=== PATIENT | male | born 1975 | race Caucasian/White ===

== ENCOUNTER 2019-04-12 14:18 | Emergency (ER) | payer BC ==
[2019-04-12] MEDS ORDERED: 0.9 % SODIUM CHLORIDE 1,000 ML BAG IV ONE (15:33)
[2019-04-12] MEDS ORDERED: KETOROLAC 30 MG/ML VIAL IVP ONE (15:33)
[2019-04-12 15:48] LABS: ABSOLUTE NEUTROPHIL COUNT 7.49; BASO % 0.3 % (0-6); EOS % 0.6 % (0-6); GRAN % 75.4 % (47-80); HEMATOCRIT 32.1 % (42.0-52.0); HEMOGLOBIN 9.9 gm/dl (14.0-18.0); LYMPH % 13.1 % (16-45); MEAN CELL VOLUME 93.9 fl (81-97); MEAN CORPUSCULAR HEMOGLOBIN 28.9 pg (27-33); MEAN CORPUSCULAR HGB CONC 30.8 g/dl (32-36); MONO % 10.6 % (0-9); PLATELET COUNT 292 K/uL (130-400); RED BLOOD COUNT 3.42 M/uL (4.40-5.70); RED CELL DISTRIBUTION WIDTH 13.9 % (11.5-14.5); URINE APPEARANCE CLEAR; URINE BILIRUBIN NEGATIVE (NEGATIVE); URINE BLOOD NEGATIVE (NEGATIVE); URINE COLOR YELLOW; URINE GLUCOSE (UA) NEGATIVE (NEGATIVE); URINE KETONE NEGATIVE (NEGATIVE); URINE LEUKOCYTE ESTERASE NEGATIVE (NEGATIVE); URINE NITRITE NEGATIVE (NEGATIVE); URINE PROTEIN NEGATIVE (NEGATIVE); URINE UROBILINOGEN 0.2 E.U./dL (0.20 - 1.00); WHITE BLOOD COUNT W/O DIFF 9.9 K/uL (4.2-12.2)
[2019-04-12 16:02] LABS: BLOOD UREA NITROGEN 22 mg/dL (6-20); CREATININE 1.7 mg/dL (0.7-1.2); EST GLOMERULAR FILTRATION RATE 47 mL/min; TOTAL PROTEIN 7.2 g/dL (6.6-8.7)
[2019-04-12 16:04] LABS: GLUCOSE,RANDOM 112 mg/dL (74-109)
[2019-04-12 16:07] LABS: ALBUMIN 3.4 g/dL (4.0-5.0); ALKALINE PHOSPHATASE 143 U/L (40-129); ALT/SGPT 21 U/L (<41); AST/SGOT 16 U/L (10.0-50.0)
[2019-04-12 16:08] LABS: BILIRUBIN,DIRECT < 0.2 mg/dL (0-0.3)
--- NOTE | 2019-04-12 17:38 | CT SCAN REPORT ---
EXAMINATION: CT Abdomen and Pelvis without IV Contrast EXAM DATE: 04/12/2019 4:55 PM TECHNIQUE: Standard protocol CT imaging of the abdomen and pelvis was performed without intravenous c ontrast. INDICATION: ruq pain COMPARISON: None ENCOUNTER: Not applicable CT ABDOMEN AND PELVIS FINDINGS: Lung Bases: Bibasilar atelectasis Hepatobiliary: The liver has a normal size with a smooth surface. Patient is status post cholecystec danielle Pancreas: Severe fatty atrophy with no definite visualization of pancreatic tissue. Spleen: The spleen is not enlarged. Adrenals: The adrenal glands are normal. Kidneys, Ureters, & Bladder: No hydronephrosis bilaterally. Vascular calcifications are present. Both ureters have a normal course and caliber and the urinary bladder a normal morphology and uniform wal l thickness. No ureteral or bladder calculi are identified. Gastrointestinal: The stomach and small bowel are normal with no obstruction or inflammation. Appendi x is identified and measures up to 7 mm in diameter which is at the upper limits of normal. No append icolith is identified. However, there is prominent inflammatory change surrounding the right colon an d extending superiorly just proximal to the splenic flexure. Areas of right colonic wall thickening a re present. Underlying colitis is suspected. Adjacent prominent mesenteric lymph nodes are present so me of which contain punctate calcifications. These measure up to 1.6 cm. Reproductive Organs: Unremarkable Lymphatic System: As mentioned above prominent mesenteric lymph nodes right abdomen adjacent to the c olon. No retroperitoneal adenopathy. Vasculature: Normal caliber abdominal aorta Peritoneum: No free fluid, free air, or inflammation Abdominal wall & Musculoskeletal: No suspicious bone lesions. Small fat-containing periumbilical jessica ia Assessment of the solid organs, soft tissues, and vascular structures is markedly limited on noncontr ast imaging, IMPRESSION: There is extensive inflammatory change surrounding the right colon and extending just proximal to the splenic flexure. Areas of right colonic wall thickening are present and there are adjacent mesenteri c lymph nodes. Underlying colitis is suspected. Note is made that the appendix measures up to 7 mm in diameter which is at the upper limits of normal. At this time no definite appendicolith. Severe atrophy of the pancreas Renal vascular calcifications. Additional findings as detailed above Dictated by: Symone Foreman MD on 04/12/2019 5:23 PM. .
--- NOTE | 2019-04-12 18:00 | Emergency Department Record ---
History of Present Illness - General Chief Complaint: Abdominal Pain Stated Complaint: RT SIDE PAIN Time Seen by Provider: 04/12/19 15:09 Source: Patient Mode of Arrival: Ambulatory - History of Present Illness Initial Comments: pt c/o ruq pain that radiates around to his back that increases with inspiration since last pm and getting progressively worse. pt is iddm. no n/v/c/d. walking or movement make it worse MD Complaint: Abdominal pain Onset/Timin -: Days(s) Location: RUQ Radiation: None Migration to: No migration Severity scale (1-10): 6 Quality: Aching Consistency: Constant Improves With: Nothing Worsens With: Nothing Associated Symptoms: Nausea - Related Data Home Medications Medication Instructions Recorded Confirmed Last Taken Aspirin [Adult Low Dose Aspirin EC] 81 mg PO DAILY 04/12/19 04/12/19 Unknown Atorvastatin Calcium 5 mg PO DAILY 04/12/19 04/12/19 Unknown Calcium Citrate 600 mg PO DAILY 04/12/19 04/12/19 Unknown Clonidine HCl 0.1 mg PO BID 04/12/19 04/12/19 Unknown Cyanocobalamin (Vitamin B-12) 500 mcg PO DAILY 04/12/19 04/12/19 Unknown [Vitamin B-12] Ergocalciferol (Vitamin D2) 10,000 mcg PO WEEKLY 04/12/19 04/12/19 Unknown [Vitamin D2] Furosemide [Lasix] 40 mg PO DAILY 04/12/19 04/12/19 Unknown Insulin Detemir [Levemir] 75 units SQ DAILY 04/12/19 04/12/19 Unknown Insulin Lispro [Humalog] 1 unit SQ DAILY 04/12/19 04/12/19 Unknown Losartan Potassium [Cozaar] 25 mg PO DAILY 04/12/19 04/12/19 Unknown Magnesium 400 mg PO DAILY 04/12/19 04/12/19 Unknown Pioglitazone HCl 30 mg PO DAILY 04/12/19 04/12/19 Unknown Ropinirole HCl [Requip] 1 mg PO DAILY 04/12/19 04/12/19 Unknown Allergies Allergy/AdvReac Type Severity Reaction Status Date / Time erythromycin base Allergy PT UNSURE Verified 04/12/19 14:30 OF REACTION Penicillins Allergy PT UNSURE Verified 04/12/19 14:30 OF REACTION Travel Screening - Travel/Exposure Within Last 30 Days Have you traveled within the last 30 days?: No Review of Systems Reviewed: No additional complaints except as noted below Constitutional: Reports: As per HPI. Denies: Chills, Fever, Malaise, Night sweats, Weakness, Weight change Eyes: Reports: As per HPI. Denies: Eye discharge, Eye pain, Photophobia, Vision change ENT: Reports: As per HPI. Denies: Congestion, Dental pain, Ear pain, Epistaxis, Hearing loss, Throat pain Respiratory: Reports: As per HPI. Denies: Cough, Dyspnea, Hemoptysis, Stridor, Wheezes Cardiovascular: Reports: As per HPI. Denies: Arrhythmia, Chest pain, Dyspnea on exertion, Edema, Murmurs, Orthopnea, Palpitations, Paroxysmal nocturnal dyspnea, Rheumatic Fever, Syncope Endocrine: Reports: As per HPI. Denies: Fatigue, Heat or cold intolerance, Polydipsia, Polyuria Gastrointestinal: Reports: As per HPI, Abdominal pain. Denies: Constipation, Diarrhea, Hematemesis, Hematochezia, Melena, Nausea, Vomiting Genitourinary: Reports: As per HPI. Denies: Dysuria, Frequency, Hematuria, Incontinence, Retention, Testicular pain, Testicular mass, Urgency Musculoskeletal: Reports: As per HPI. Denies: Arthralgia, Back pain, Gout, Joint swelling, Myalgia, Neck pain Skin: Reports: As per HPI. Denies: Bruising, Change in color, Change in hair/nails, Lesions, Pruritus, Rash Neurological: Reports: As per HPI. Denies: Abnormal gait, Confusion, Headache, Numbness, Paresthesias, Seizure, Tingling, Tremors, Vertigo, Weakness Psychiatric: Reports: As per HPI. Denies: Anxiety, Auditory hallucinations, Depression, Homicidal thoughts, Suicidal thoughts, Visual hallucinations Hematological/Lymphatic: Reports: As per HPI. Denies: Anemia, Blood Clots, Easy bleeding, Easy bruising, Swollen glands Past Medical History - SOCIAL HISTORY Smoking Status: Never smoker Alcohol Use: None Drug Use: None - RESPIRATORY Hx Respiratory Disorders: No - CARDIOVASCULAR Hx Cardio Disorders: Yes Hx Hypertension: Yes - NEURO Hx Neuro Disorders: Yes Hx Dizziness: Yes - GI Hx GI Disorders: No - Hx Genitourinary Disorders: No - ENDOCRINE Hx Endocrine Disorders: Yes Hx Diabetes: Yes (type 2) Hx Thyroid Disease: No - MUSCULOSKELETAL Hx Musculoskeletal Disorders: Yes Hx Arthritis: Yes - PSYCH Hx Psych Problems: No - HEMATOLOGY/ONCOLOGY Hx Hematology/Oncology Disorders: Yes Hx Anemia: Yes Family Medical History Any Significant Family History?: No Physical Exam - General General Appearance: Alert, Oriented x3, Cooperative, Mild distress - Head Head exam: Normal inspection - Eye Eye exam: Normal appearance, PERRL, EOMI Pupils: Normal accommodation - ENT ENT exam: Normal exam, Mucous membranes moist, Normal external ear exam, Normal orophraynx Ear exam: Normal external inspection. negative: External canal tenderness Nasal Exam: Normal inspection. negative: Discharge, Sinus tenderness Mouth exam: Normal external inspection, Tongue normal Teeth exam: Normal inspection. negative: Dental caries Throat exam: Normal inspection. negative: Tonsillar erythema, Tonsillar exudate - Neck Neck exam: Normal inspection, Full ROM. negative: Tenderness - Respiratory Respiratory exam: Normal lung sounds bilaterally. negative: Respiratory distress - Cardiovascular Cardiovascular Exam: Regular rate, Normal rhythm, Normal heart sounds - GI/Abdominal GI/Abdominal exam: Soft, Normal bowel sounds, Tenderness - Rectal Rectal exam: Deferred - exam: Deferred - Extremities Extremities exam: Normal inspection, Full ROM, Normal capillary refill. negativ e: Tenderness - Back Back exam: Reports: Normal inspection, Full ROM. Denies: Muscle spasm, Rash noted, Tenderness - Neurological Neurological exam: Alert, CN II-XII intact, Normal gait, Oriented X3 - Psychiatric Psychiatric exam: Normal affect, Normal mood - Skin Skin exam: Dry, Intact, Normal color, Warm Course Vital Signs 04/12/19 14:23 Temperature 98.4 F Pulse Rate 93 H Respiratory 20 Rate Blood Pressure 136/77 Pulse Ox 98 - Reevaluation(s) Reevaluation #1: 04/12/19 18:10 d/w dr arriaga. pt needs vq for elevated d-dimer Medical Decision Making - Lab Data Result diagrams: 04/12/19 14:30 04/12/19 14:30 Lab Results 04/12/19 04/12/19 04/12/19 Range/Units 14:30 14:30 14:30 WBC 9.9 (4.2-12.2) K/uL RBC 3.42 L (4.40-5.70) M/uL Hgb 9.9 L (14.0-18.0) gm/dl Hct 32.1 L (42.0-52.0) % MCV 93.9 (81-97) fl MCH 28.9 (27-33) pg MCHC 30.8 L (32-36) g/dl RDW 13.9 (11.5-14.5) % Plt Count 292 (130-400) K/uL MPV 9.0 (7.4-10.4) fl Gran % 75.4 (47-80) % Lymphocytes % 13.1 L (16-45) % Monocytes % 10.6 H (0-9) % Eosinophils % 0.6 (0-6) % Basophils % 0.3 (0-6) % Absolute Neutrophils 7.49 D-Dimer (0-0.59) mg/L FEU Sodium 135 L (136-145) mmol/L Potassium 5.0 H (3.4-4.5) mmol/L Chloride 99 (98-107) mmol/L Carbon Dioxide 25.0 (22-29) mmol/L Anion Gap 11.0 (7-16) BUN 22 H (6-20) mg/dL Creatinine 1.7 H (0.7-1.2) mg/dL Estimated GFR 47 mL/min Random Glucose 112 H (74-109) mg/dL Calcium 9.2 (8.6-10.0) mg/dL Total Bilirubin 0.30 (0.2-1.0) mg/dL Direct Bilirubin < 0.2 (0-0.3) mg/dL AST 16 (10.0-50.0) U/L ALT 21 (<41) U/L Alkaline Phosphatase 143 H (40-129) U/L Total Protein 7.2 (6.6-8.7) g/dL Albumin 3.4 L (4.0-5.0) g/dL Urine Color Yellow Urine Appearance Clear Urine pH 7.0 (5.0-8.0) Ur Specific [place] 1.010 (1.002-1.030) Urine Protein Negative (NEGATIVE) Urine Glucose (UA) Negative (NEGATIVE) Urine Ketones Negative (NEGATIVE) Urine Blood Negative (NEGATIVE) Urine Nitrite Negative (NEGATIVE) Urine Bilirubin Negative (NEGATIVE) Urine Urobilinogen 0.2 (0.20 - 1.00) E.U./dL Ur Leukocyte Esterase Negative (NEGATIVE) 04/12/19 Range/Units 14:30 WBC (4.2-12.2) K/uL RBC (4.40-5.70) M/uL Hgb (14.0-18.0) gm/dl Hct (42.0-52.0) % MCV (81-97) fl MCH (27-33) pg MCHC (32-36) g/dl RDW (11.5-14.5) % Plt Count (130-400) K/uL MPV (7.4-10.4) fl Gran % (47-80) % Lymphocytes % (16-45) % Monocytes % (0-9) % Eosinophils % (0-6) % Basophils % (0-6) % Absolute Neutrophils D-Dimer 1.14 H (0-0.59) mg/L FEU Sodium (136-145) mmol/L Potassium (3.4-4.5) mmol/L Chloride (98-107) mmol/L Carbon Dioxide (22-29) mmol/L Anion Gap (7-16) BUN (6-20) mg/dL Creatinine (0.7-1.2) mg/dL Estimated GFR mL/min Random Glucose (74-109) mg/dL Calcium (8.6-10.0) mg/dL Total Bilirubin (0.2-1.0) mg/dL Direct Bilirubin (0-0.3) mg/dL AST (10.0-50.0) U/L ALT (<41) U/L Alkaline Phosphatase (40-129) U/L Total Protein (6.6-8.7) g/dL Albumin (4.0-5.0) g/dL Urine Color Urine Appearance Urine pH (5.0-8.0) Ur Specific [place] (1.002-1.030) Urine Protein (NEGATIVE) Urine Glucose (UA) (NEGATIVE) Urine Ketones (NEGATIVE) Urine Blood (NEGATIVE) Urine Nitrite (NEGATIVE) Urine Bilirubin (NEGATIVE) Urine Urobilinogen (0.20 - 1.00) E.U./dL Ur Leukocyte Esterase (NEGATIVE) Disposition Disposition: Transfer Clinical Impression: Colitis, Elevated d-dimer, IDDM (insulin dependent diabetes mellitus) Disposition: Acute Care Hospital Transfer Transfer To: [facility] Reason For Transfer: needs vq scan and admission for colitis Accepting Physician: dr arriaga Time Discussed w/Accepting Physician: 18:12 Condition: (1) Good Quality - Quality Measures Quality Measures: N/A - Blood Pressure Screening Does Patient Have Any of the Following: No Blood Pressure Classification: Pre-Hypertensive BP Reading Systolic Measurement: 136 Diastolic Measurement: 77 Screening for High Blood Pressure: < Pre-Hypertensive BP, F/U Documented > [G8950] Pre-Hypertensive Follow-up Interventions: Follow-up with rescreen every year.
[2019-04-12] MEDS ORDERED: HYDROMORPHONE HCL 2 MG/ML VIAL IVP ONE (18:06)
[2019-04-12] MEDS ORDERED: CIPROFLOXACIN LACTATE/D5W 400 MG/200 ML BAG IVPB ONE (18:09)
== END 2019-04-12 20:10 | disposition short-term general hospital (02) ==
LOC: ER 14:18
DX: K52.9 Noninfective gastroenteritis and colitis, unspecified (principal); R11.0 Nausea; R10.11 Right upper quadrant pain; E11.9 Type 2 diabetes mellitus without complications; I10 Essential (primary) hypertension; R79.89 Other specified abnormal findings of blood chemistry; Z79.4 Long term (current) use of insulin
CPT/HCPCS: 99285 ×2; 96365; 96375; 96361; 85025; 80076; 80048; 81003; 85379; 74176; J0744; J1885; J1170; J7030